=== PATIENT | male | born 1995 | race Caucasian/White ===

== ENCOUNTER 2017-12-31 02:37 | Emergency (ER) | payer SELFPAY ==
[~2017-12-31] VITALS: Ht 170.2 cm; Wt 70.5 kg
[2017-12-31 02:49] VITALS: BP 140/75; PULSE 102; RESP 16; TEMP 98.5; O2SAT 99
== END 2017-12-31 03:55 | disposition left against medical advice (07) ==
LOC: NED 02:37
DX: R68.89 Other general symptoms and signs (principal)
CPT/HCPCS: 99281